=== PATIENT | female | born 1965 | race Two or more races ===

== ENCOUNTER → 2022-08-20 | Outpatient (CLI) | payer OTHER ==
--- NOTE | 2022-08-20 09:01 | MR ---
EXAMINATION TYPE: MR foot RT wo con DATE OF EXAM: 08/20/2022 COMPARISON: None HISTORY: 57-year-old female M79.671, Right foot pain x 3 mths TECHNIQUE: Multiplanar, multisequence images of the right foot were acquired without contrast. FINDINGS: Moderate first MTP joint effusion. Incidental bipartite tibial sesamoid. Dorsal and dorsolateral midfoot subcutaneous soft tissue edema is noted. There is focal osseous edema involving the base of the second metatarsal. Edematous change along the intraosseous portion of the Lisfranc ligament and some edema along the dorsal portion as well. No mid foot malalignment. No discrete fracture line is apparent by MRI. No other acute or healing fracture is seen. Some tenosynovial fluid seen along the extensor hallucis longus may be reactive or could represent mild tenosynovitis. Achilles tendon and origin of the plantar fascia are intact. Tibiotalar joint and subtalar joints are aligned. Preserved signal within the sinus Tarsi. IMPRESSION: 1. Osseous edema involving the base of the second metatarsal. Correlate for grade 2 sprain of the adj acent Lisfranc ligament. No pop rupture or midfoot malalignment is seen. No discrete fracture line identified by MRI. 2. Fluid along the extensor hallucis longus tendon could be reactive or could represent a mild tenosy novitis. 3. Dorsal and dorsolateral midfoot subcutaneous soft tissue edema.
== END | disposition home or self-care (01) ==
LOC: RADMRIMAIN 06:02
PROVIDERS: ATTEND Podiatrist
DX: M84.374D Stress fracture, right foot, subsequent encounter for fracture with routine healing (principal); D21.21 Benign neoplasm of connective and other soft tissue of right lower limb, including hip; M79.89 Other specified soft tissue disorders

== ENCOUNTER → 2023-10-16 | Outpatient (CLI) | payer BC ==
--- NOTE | 2023-10-16 22:48 | CT ---
EXAMINATION TYPE: CT lumbar spine wo con CT DLP: 1019 mGycm, Automated exposure control for dose reduction was used. DATE OF EXAM: 10/16/2023 3:18 PM COMPARISON: None. CLINICAL INDICATION:Female, 58 years old with history of Z98.1 S/P LUMBAR FUSION; PHH, 9 WEEKS POST O P, LOWER LUMBAR FUSION RECHECK TECHNIQUE: Multiple axial images were obtained from the midportion of T11 through the sacroiliac tyler nts. Soft tissue and bone windows in coronal and sagittal planes were obtained and reviewed. Contrast used: mL of , (None, if empty). Oral contrast used: (None, if empty). FINDINGS: Alignment: There are 5 lumbar type vertebral bodies with grade 1 anterolisthesis of L4 and L5. Bone: Multilevel degeneration changes with facet joint arthropathy, disc space narrowing, osteophytes and vacuum disc. Fixation hardware L5-S1 appears intact Discs: T12-L1: No spinal canal or neural foraminal stenosis is identified. L1-L2: No spinal canal or neural foraminal stenosis is identified. L2-L3: Facet joint arthropathy and disc bulging result with mild spinal canal stenosis and mild bilat eral neural foraminal stenosis. L3-L4: Facet joint arthropathy, osteophytes and disc bulging result in mild spinal canal stenosis and moderate bilateral neural foraminal stenosis. L4-L5: Grade 1 anterolisthesis of L4 and L5 with moderate bilateral neural foraminal stenosis. Spinal canal appears patent. L5-S1: Vasectomy and degeneration at this level within the limitations of the exam the spinal canal a ppears mildly narrowed. There is moderate neural foraminal stenosis bilaterally. Other: None IMPRESSION: 1. Postsurgical changes to the L4-L5 vertebral bodies. Hardware appears intact. No neural foraminal stenosis worse at L5-S1 with at least moderate bilateral. No significant spinal canal stenosis. 2. Grade 1 anterolisthesis of L4 and L5. 4. Multilevel degeneration changes throughout the spine, within the limitations of exam no evidence f or significant spinal canal stenosis.
== END | disposition home or self-care (01) ==
LOC: RADCTMAIN 13:33
PROVIDERS: ATTEND Student in an Organized Health Care Education/Training Program
DX: M43.16 Spondylolisthesis, lumbar region (principal); M47.816 Spondylosis without myelopathy or radiculopathy, lumbar region; Z98.1 Arthrodesis status
CPT/HCPCS: 72131